=== PATIENT | male | born 1965 | race Hispanic/Latino ===

== ENCOUNTER 2022-10-10 11:37 | Emergency (ER) | payer OTHER, MEDICARE ==
[~2022-10-10] VITALS: Ht 170.2 cm; Wt 102.1 kg
[2022-10-10 13:21] LABS: CREATININE 0.8 mg/dL (0.5-1.5); HEMATOCRIT 39.4 % (42-54); MEAN CORPUSCULAR HEMOGLOBIN 30.3 pg (27.0-33.0); MEAN CORPUSCULAR VOLUME 86.4 fL (79-99); RED BLOOD CELL COUNT(AUTO) 4.56 MIL/uL (4.50-6.20); RED CELL DISTRIBUTION WIDTH 14.9 % (11.0-15.5); WHITE BLOOD COUNT (AUTO) 4.4 K/uL (4.8-10.8)
[2022-10-10 13:26] LABS: ALBUMIN 3.6 g/dL (3.5-5.0); TOTAL PROTEIN, SERUM 7.2 g/dL (6.0-8.3)
[2022-10-10] MEDS ORDERED: ACETAMINOPHEN 500 MG TABLET PO ONE (13:30)
[2022-10-10 14:58] VITALS: BP 142/88
[2022-10-10] MEDS ORDERED: ACET-66 PO (16:05)
[2022-10-10] MEDS ORDERED: IBUP-2070 PO (16:05)
== END 2022-10-10 16:13 | disposition home or self-care (01) ==
LOC: EDH 11:37
DX: S00.83XA Contusion of other part of head, initial encounter (principal); E78.00 Pure hypercholesterolemia, unspecified; I10 Essential (primary) hypertension; Z59.7 Insufficient social insurance and welfare support; Z86.73 Personal history of transient ischemic attack (TIA), and cerebral infarction without residual deficits; W01.0XXA Fall on same level from slipping, tripping and stumbling without subsequent striking against object, initial encounter; Y93.01 Activity, walking, marching and hiking; Y92.89 Other specified places as the place of occurrence of the external cause; Y99.8 Other external cause status
CPT/HCPCS: 36415; 70450; 72125; 80053; 85027